=== PATIENT | female | born 1930 | race Two or more races ===

== ENCOUNTER → 2016-11-03 | Outpatient (CLI) | payer MEDICARE ==
[2016-11-03 11:58] LABS: HEMATOCRIT 35.3 % (35.0-46.0); MEAN CELL VOLUME 93.6 FL (80.0-100.0); MEAN CORPUSCULAR HEMOGLOBIN 31.9 PG (27.0-34.0); MEAN CORPUSCULAR HGB CONC 34.1 % (32.0-36.0); PLATELET COUNT 125 TH/MM3 (150-450); RED BLOOD COUNT 3.78 MIL/MM3 (4.00-5.30); RED CELL DISTRIBUTION WIDTH 14.4 % (11.6-17.2); REVIEW FLAG FINAL; WHITE BLOOD COUNT 4.7 TH/MM3 (4.0-11.0)
[2016-11-03 12:21] LABS: ALKALINE PHOSPHATASE 86 U/L (45-117); ALT (GPT) 20 U/L (10-53); ANION GAP 9 MEQ/L (5-15); AST (GOT) 16 U/L (15-37); BICARBONATE 29.4 MEQ/L (21.0-32.0); BLOOD UREA NITROGEN 65 MG/DL (7-18); CHLORIDE 102 MEQ/L (98-107); GLOMERULAR FILTRATION RATE 22 ML/MIN (>89); GLUCOSE,FASTING 160 MG/DL (74-99); POTASSIUM 4.1 MEQ/L (3.5-5.1); SODIUM (NA) 140 MEQ/L (136-145); TOTAL BILIRUBIN ADULT 1.4 MG/DL (0.2-1.0)
== END ==
LOC: CLAB 11:14
DX: I50.9 Heart failure, unspecified (principal); K76.0 Fatty (change of) liver, not elsewhere classified; I10 Essential (primary) hypertension
CPT/HCPCS: 36415; 80053; 82140; 85027

== ENCOUNTER 2016-11-07 11:07 | Emergency (ER) | payer MEDICARE, OTHER ==
[~2016-11-07] VITALS: Ht 160 cm; Wt 63.0 kg
[2016-11-07 11:08] VITALS: BP 206/86; PULSE 60; RESP 20; TEMP 97.6; O2SAT 96
--- NOTE | 2016-11-07 12:50 | PD ---
HPI Chief Complaint: Altered Mental Status Time Seen by Provider: 12:50 Travel History International Travel<30 days: No Contact w/Intl Traveler<30days: No Traveled to known affect area: No History of Present Illness HPI 85-year-old female with a history of hypertension, CHF, AICD pacemaker is brought to the emergency department by her granddaughter for evaluation of altered mental status. Per the patient's granddaughter the patient is here visiting for a few months from [place], she is here staying with her daughter. Apparently the patient's daughter woke her up from a nap this morning and she was apparently confused thinking that she was in [place] and stating it was 2014. The patient has not had any confusion since that episode this morning. The patient is awake, alert and oriented to person, place, time and situation. The patient states that she is here because "I'm confused." The patient continues to tell me that she is confused although she cannot elaborate on what she is confused about. She has had urinary frequency. The patient denies any fever, chills, nausea, vomiting, chest pain, shortness of breath, abdominal pain, burning with urination, cough or cold symptoms. She is anticoagulated on Pradaxa. No recent falls. No other complaints. PFSH Past Medical History Hx Anticoagulant Therapy: Yes Cardiovascular Problems: Yes (PACEMAKER) Social History Tobacco Use: No Allergies-Medications (Allergen,Severity, Reaction): Coded Allergies: No Known Allergies (Unverified , 11/07/16) Reported Meds & Prescriptions Reported Meds & Active Scripts Active Active Prescriptions or Reported Medications Unobtainable Review of Systems Except as stated in HPI: all other systems reviewed are Neg Physical Exam Narrative GENERAL: Well-nourished and well-developed pleasant elderly female patient in no acute distress. SKIN: Warm and dry. HEAD: Normocephalic and atraumatic. EYES: No injection, drainage, or hyphema noted. PERRLA. EOMI. ENT: No nasal drainage noted. Oropharynx is clear. NECK: Supple and the trachea is midline. CARDIOVASCULAR: Regular rate and rhythm. RESPIRATORY: Breath sounds are equal bilaterally with no accessory muscle use, wheezing, rhonchi, or crackles. GASTROINTESTINAL: Abdomen is soft, non-tender, and nondistended. MUSCULOSKELETAL: No obvious deformities, swelling, cyanosis, or ecchymosis is present throughout the upper and lower extremities. Patient has full range of motion without any signs of neurovascular compromise. Strength 5/5 upper and lower extremities and equal bilaterally. NEUROLOGICAL: Awake, alert, and oriented. Normal speech and gait. Cranial nerves are grossly intact. Data Data Last Documented VS Vital Signs Date Time Temp Pulse Resp B/P Pulse Ox O2 Delivery O2 Flow Rate FiO2 11/07/16 13:28 64 18 159/67 98 11/07/16 11:08 97.6 Room Air Orders Blood Glucose (11/07/16 11:26) Oximetry (11/07/16 11:26) Iv Access Insert/Monitor (11/07/16 11:26) Ecg Monitoring (11/07/16 11:26) Oxygen Administration (11/07/16 11:26) Electrocardiogram (11/07/16 12:48) Ammonia (11/07/16 12:48) Complete Blood Count With Diff (11/07/16 12:48) Comprehensive Metabolic Panel (11/07/16 12:48) Prothrombin Time / Inr (Pt) (11/07/16 12:48) Act Partial Throm Time (Ptt) (11/07/16 12:48) Troponin I (11/07/16 12:48) Urinalysis - C+S If Indicated (11/07/16 12:48) Labs Laboratory Tests Test 11/07/16 11/07/16 13:00 13:17 White Blood Count 6.8 TH/MM3 Red Blood Count 3.63 MIL/MM3 Hemoglobin 11.6 GM/DL Hematocrit 34.1 % Mean Corpuscular Volume 94.0 FL Mean Corpuscular Hemoglobin 32.1 PG Mean Corpuscular Hemoglobin 34.1 % Concent Red Cell Distribution Width 14.4 % Platelet Count 133 TH/MM3 Mean Platelet Volume 9.4 FL Neutrophils (%) (Auto) 72.5 % Lymphocytes (%) (Auto) 17.1 % Monocytes (%) (Auto) 8.4 % Eosinophils (%) (Auto) 1.2 % Basophils (%) (Auto) 0.8 % Neutrophils # (Auto) 4.9 TH/MM3 Lymphocytes # (Auto) 1.2 TH/MM3 Monocytes # (Auto) 0.6 TH/MM3 Eosinophils # (Auto) 0.1 TH/MM3 Basophils # (Auto) 0.1 TH/MM3 CBC Comment DIFF FINAL Differential Comment Prothrombin Time 12.9 SEC Prothromb Time International 1.2 RATIO Ratio Activated Partial 34.5 SEC Thromboplast Time Sodium Level 144 MEQ/L Potassium Level 4.3 MEQ/L Chloride Level 110 MEQ/L Carbon Dioxide Level 24.5 MEQ/L Anion Gap 10 MEQ/L Blood Urea Nitrogen 51 MG/DL Creatinine 1.46 MG/DL Estimat Glomerular Filtration 34 ML/MIN Rate Random Glucose 125 MG/DL Calcium Level 9.7 MG/DL Total Bilirubin 1.2 MG/DL Aspartate Amino Transf 23 U/L (AST/SGOT) Alanine Aminotransferase 18 U/L (ALT/SGPT) Alkaline Phosphatase 76 U/L Ammonia 61 MCMOL/L Troponin I 0.03 NG/ML Total Protein 7.1 GM/DL Albumin 3.4 GM/DL Urine Color YELLOW Urine Turbidity CLEAR Urine pH 5.5 Urine Specific [place] 1.017 Urine Protein NEG mg/dL Urine Glucose (UA) NEG mg/dL Urine Ketones NEG mg/dL Urine Occult Blood NEG Urine Nitrite NEG Urine Bilirubin NEG Urine Urobilinogen LESS THAN 2.0 MG/DL Urine Leukocyte Esterase NEG Urine WBC LESS THAN 1 /hpf Urine Squamous Epithelial 1 /hpf Cells Microscopic Urinalysis Comment CATH-CULT NOT IND MDM Medical Decision Making Medical Screen Exam Complete: Yes Emergency Medical Condition: Yes Differential Diagnosis Urinary tract infection versus electrolyte abnormality versus normal exam versus intracranial hemorrhage Narrative Course 85-year-old female presents to the emergency department for evaluation of confusion. Patient is afebrile, vital signs are stable. She is a little bit hypertensive at 206/86. No focal neurologic deficits on exam. Of note, I did order a head CT to evaluate for possible intracranial hemorrhage due to anticoagulation but patient and daughter are refusing head CT. She is also refusing chest x-ray. CBC is unremarkable. CMP shows renal insufficiency, no prior labs for comparison. Troponin is 0.03. Ammonia is elevated at 61. Urinalysis is unremarkable. My attending physician also saw the patient and had further discussion with patient and daughter. Apparently she does have some element of liver disease and is on lactulose regularly but the past 1-2 days was told to decrease the dose by her PCP. It is unclear if the patient's episode of delirium was caused by ammonia level being elevated, by being woken up from a nap in an unfamiliar place, a mixture of both or neither. Regardless, she is back to her mental status baseline. Discussed signs and symptoms and when to return to the emergency department. I discussed the case with my attending physician Dr. Hurst who is aware of the patients history, physical examination findings, and treatment plan. Diagnosis Primary Impression: Delirium Additional Impression: Increased ammonia level Referrals: Primary Care Physician Patient Instructions: Acute Delirium (ED), General Instructions Additional Instructions: Take Lactulose as prescribed by your PCP. Follow-up with your Primary Care Physician. Return to the ED for any acute worsening of symptoms. Med/Other Pt SpecificInfo: No Change to Meds Scripts Unable to Obtain Active Prescriptions or Reported Meds Disposition: 01 DISCHARGE HOME Condition: Stable Nicole Strange Nov 07, 2016 12:50
[2016-11-07 13:15] LABS: AUTOMATED NEUTROPHIL # 4.9 TH/MM3 (1.8-7.7); BASOPHIL # 0.1 TH/MM3 (0-0.2); BASOPHIL % 0.8 % (0.0-2.0); EOSINOPHIL # 0.1 TH/MM3 (0-0.4); EOSINOPHIL % 1.2 % (0.0-4.0); HEMATOCRIT 34.1 % (35.0-46.0); HEMO FLAGS DIFF FINAL; LYMPH % 17.1 % (9.0-44.0); LYMPHOCYTE # 1.2 TH/MM3 (1.0-4.8); MEAN CORPUSCULAR HEMOGLOBIN 32.1 PG (27.0-34.0); MEAN CORPUSCULAR HGB CONC 34.1 % (32.0-36.0); MONO % 8.4 % (0.0-8.0); NEUT % 72.5 % (16.0-70.0); PLATELET COUNT 133 TH/MM3 (150-450); RED BLOOD COUNT 3.63 MIL/MM3 (4.00-5.30); RED CELL DISTRIBUTION WIDTH 14.4 % (11.6-17.2); WHITE BLOOD COUNT 6.8 TH/MM3 (4.0-11.0)
[2016-11-07 13:27] LABS: APTT (PATIENT) 34.5 SEC (24.3-30.1); INTERNATIONAL NORMALIZED RATIO 1.2 RATIO; PROTHROMBIN TIME - PATIENT 12.9 SEC (9.8-11.6)
[2016-11-07 13:28] VITALS: BP 159/67; PULSE 64; PULSE 74; RESP 18; O2SAT 98
[2016-11-07 13:31] LABS: BLOOD, URINE NEG (NEG); COMMENT (UR) CATH-CULT NOT IND; CULTURE IF INDICATED CATH CULTURE NOT IND; GLUCOSE,URINE NEG (NEG); KETONE, URINE NEG (NEG); NITRITE,URINE NEG (NEG); PH, URINE 5.5 (5.0-8.5); SQUAMOUS EPITHELIAL CELL URINE 1 /hpf (0-5); URINE COLOR YELLOW (YELLW/STRAW)
[2016-11-07 13:37] LABS: ALT (GPT) 18 U/L (10-53); ANION GAP 10 MEQ/L (5-15); AST (GOT) 23 U/L (15-37); BICARBONATE 24.5 MEQ/L (21.0-32.0); BLOOD UREA NITROGEN 51 MG/DL (7-18); CHLORIDE 110 MEQ/L (98-107); GLOMERULAR FILTRATION RATE 34 ML/MIN (>89); POTASSIUM 4.3 MEQ/L (3.5-5.1); SODIUM (NA) 144 MEQ/L (136-145)
[2016-11-07 13:41] LABS: ALKALINE PHOSPHATASE 76 U/L (45-117); TOTAL BILIRUBIN ADULT 1.2 MG/DL (0.2-1.0)
== END 2016-11-07 15:28 | disposition home or self-care (01) ==
LOC: NETRI 11:07
DX: R41.0 Disorientation, unspecified (principal); Z79.01 Long term (current) use of anticoagulants
CPT/HCPCS: 80053; 81001; 82140; 84484; 85025; 85610; 85730